=== PATIENT | female | born 1955 | race Caucasian/White ===

== ENCOUNTER 2023-03-08 18:07 | Emergency (ER) | payer MEDICARE ==
[~2023-03-08] VITALS: Ht 157.5 cm; Wt 97.5 kg
[2023-03-08] MEDS ORDERED: LEXAPRO10 MG PO (18:41)
[2023-03-08] MEDS ORDERED: ATIVAN0.5 MG PO (18:42)
[2023-03-08 18:50] LABS: BASOPHILS 0.8 % (0-2); EOSINOPHILS 2.4 % (0-6); HEMATOCRIT 44.5 % (35.0-50.0); HEMOGLOBIN 15.1 g/dL (12.0-18.0); LYMPHOCYTES 25.5 % (24-44); MCH 30.8 (27-36); MCHC 33.9 g/dl (30-36); MONOCYTES 5.8 % (0-12); NEUTROPHILS 65.5 % (39-80); PLATELET COUNT 262 K/uL (140-440); RBC 4.89 M/ul (4.3-5.7); RDW 14.2 (10.5-15.0)
[2023-03-08 19:08] LABS: ALBUMIN 4.2 g/dL (3.4-5.0); ALBUMIN/GLOBULIN RATIO 1.27 (1.1-2.4); ANION GAP 15.7 (7-21); BILIRUBIN, TOTAL 0.4 ng/dL (0.2-1.0); BUN/CREATININE RATIO 13.26 (6.0-28.6); CALCIUM 9.1 mg/dL (8.5-10.1); CREATININE, SERUM 0.98 mg/dL (0.55-1.02); MAGNESIUM 2.1 mg/dL (1.8-2.4); POTASSIUM 3.7 mmol/L (3.5-5.1); PROTEIN, TOTAL 7.5 g/dL (6.4-8.2)
[2023-03-08 19:53] LABS: AMYLASE 150 U/L (25-115)
--- OUTSIDE RECORDS SUMMARY | 2023-03-08 20:01 | XMS ---
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 Manuelito VISIT COUNT (12 MO.) 1 HARLEY [place] TOTAL 1 NOTE: Visits indicate total known visits. ED/UCC VISIT TRACKING (12 MO.) 03/08/2023 18:07 [facility] [place] TYPE: Emergency COMPLAINT: - HIGH BLOOD PRESSURE INPATIENT VISIT TRACKING (12 MO.) No inpatient visits to display in this time frame [id number]
[2023-03-08] MEDS ORDERED: LISINOPRIL-HCT1 EACH PO (20:06)
[2023-03-08 20:17] VITALS: BP 138/78
--- NOTE | 2023-03-09 06:55 | EKG ---
[facility] [address] [place], [place] [address] Signed Normal sinus rhythm Low voltage QRS Incomplete right bundle branch block T wave abnormality, consider anterior ischemia Abnormal ECG No previous ECGs available Confirmed by TAMMY BOYD MD ([id number]) on 03/09/2023 6:55:25 AM Electronically Signed By: TAMMY BOYD 03/09/23 0655 PATIENT NAME: ASHLEY MCGARRY Electrocardiogram DATE OF : 53 PHYSICIAN: TAMMY BOYD REPORT #: [id number] REPORT IS CONFIDENTIAL AND NOT TO BE RELEASED WITHOUT AUTHORIZATION
== END 2023-03-08 20:18 | disposition home or self-care (01) ==
LOC: ED 18:07
PROVIDERS: Emergency Medicine; Family Medicine
DX: I10 Essential (primary) hypertension (principal); Z79.899 Other long term (current) drug therapy; Z91.041 Radiographic dye allergy status
CPT/HCPCS: 36415; 70450; 71045; 80053; 82150; 83690; 83735; 84484; 85025; A9270

== ENCOUNTER 2025-01-19 05:58 | Day surgery (SDC) | payer MEDICARE ==
[~2025-01-19] VITALS: Ht 162.6 cm; Wt 95.0 kg
[~2025-01-19 05:58] MED LIST: ATIVAN0.5 MG PO; L-THEANINE100 MG PO; LACTATED RINGER'S 1,000 ML IV SCH; LEXAPRO10 MG PO; LISINOPRIL-HCT1 EACH PO; MAGNESIUM400 MG PO; NP THYROID30 MG PO
[2025-01-19 06:13] VITALS: BP 167/91
[2025-01-19] MEDS ORDERED: LIDOCAINE HCL 1% 5 ML SDV INJ ONE (07:00)
[2025-01-19] MEDS ORDERED: IBLOOD GLUCOSE TEST STRIP 1 EA TEST VI PRN ×2 (07:00→10:30)
[2025-01-19] MEDS ORDERED: CEFAZOLIN SODIUM 2 GM in SODIUM CHLORIDE 0.9% 100 ML IV SCH (07:00)
--- NOTE | 2025-01-19 07:04 | NUR ---
DR Cheung IN TO TALK WITH PT. INSIDE WIREMAN IN TO SEE PT. DB.
--- NOTE | 2025-01-19 07:04 | NUR ---
G DAUGHTER KARLEY WILL BE BACK.
[2025-01-19] MEDS ORDERED: DEXAMETHASONE SOD PHOS 4 MG/ML VIAL ONE ×2 (07:19→10:29)
[2025-01-19] MEDS ORDERED: KETAMINE in NS 50 MG/5 ML SYR ONE (07:19)
[2025-01-19] MEDS ORDERED: fentaNYL citrate 100 MCG/2 ML VIAL ONE ×2 (07:19→11:19)
[2025-01-19] MEDS ORDERED: MIDAZOLAM HCL 2 MG/2 ML VIAL ONE (07:19)
[2025-01-19] MEDS ORDERED: MAGNESIUM SULFATE 1 GM/2 ML VIAL ONE ×2 (07:20→08:50)
[2025-01-19] MEDS ORDERED: SODIUM CHLORIDE 0.9% 40 ML IV ONE ×3 (07:20→10:29)
[2025-01-19] MEDS ORDERED: LIDOCAINE HCL 2% 5 ML SDV ONE ×2 (07:20→08:49)
[2025-01-19] MEDS ORDERED: ROCURONIUM BROMIDE 50 MG/5 ML SYR ONE ×2 (07:20→09:14)
[2025-01-19] MEDS ORDERED: ACETAMINOPHEN 1,000 MG/100 ML VIAL ONE (07:20)
[2025-01-19] MEDS ORDERED: Ropivacaine HCl 0.5% 30 ML VIAL ONE (10:29)
[2025-01-19] MEDS ORDERED: fentaNYL citrate 50 MCG/ML SDV IV PRN (10:30)
[2025-01-19] MEDS ORDERED: KETOROLAC TROMETHAMINE 30 MG/ML VIAL IV PRN (10:30)
[2025-01-19] MEDS ORDERED: NALOXONE HCL 0.4 MG SYR IV PRN (10:30)
[2025-01-19] MEDS ORDERED: HYDROmorphone HCL 1 MG/ML SYR IV PRN (10:30)
[2025-01-19] MEDS ORDERED: ALBUTEROL/IPRATROPIUM 3 ML NEB INH ONE (12:00)
--- NOTE | 2025-01-19 12:09 | NUR ---
01/19/25 1209 Sheets,Erinn 1122 PT ARRIVED TO PACU ON 6L VIA MASK AND O2 SAT LOW 90S. RESP EVEN AND UNLABORED. DEEP BREATHING AND COUGHING ENCOURAGED. PT REFUSED TO COUGH AND EASILY FALLS BACK TO SLEEP. HOB INCREASED. 1140 O2 REMOVED AND O2 DECREASED TO 86%, HOB INCREASED AND DEEP BREATHING ENCOURAGED. PT REPORTS PAIN IS ABD 9/10 AND REFUSED TO COUGH. 4L NC PLACED. O2 SLOWING INCREASING. 1143 PT ASLEEP AND MD AT BEDSIDE. PT WAKES EASILY AND TALKING TO PT. PT GRIMACING OFF AND ON. O2 SAT REMAIN LOW 90S. 1152 INSENTIVE SPIROMETER USED AND PT ABLE TO USE WITH EDUCATION. LOW LOBES BILAT RHONCI NOTED. 1157 NEW ORDER FROM JACQUARD TWINE POLISHER OPERATOR. BREATHING TREATMENT STARTED. O2 DECREASED TO 2L. 1206 PT SITTING IN HIGH FOLWERS AND RESTING WITH EYES CLOSED. O2 SAT 88-90%. 1209 RNA HELPS PT BRACE ABD AND PT COUGHING. PT GRIMACING AND GRABBING IN ABD. EDUCAITON GIVEN. O2 SAT INCREASED TO 93%.
[2025-01-19 12:34] VITALS: BP 109/54
--- NOTE | 2025-01-19 12:40 | NUR ---
HAS RETURNED FROM PACU CALL LIGHT GIVEN USING IS. WATER AND PRANEETH CRACKERS GIVEN. R T HERE TO EVALUATE.
[2025-01-19] MEDS ORDERED: HYDROCODONE/ACETA 5/325 TAB PO PRN (13:00)
[2025-01-19 13:22] VITALS: BP 106/63
--- NOTE | 2025-01-19 13:28 | NUR ---
HAS BEEN EATING CRACKERS. RATES PAIN 8/10 NOW PAIN MED STATING TO WORK. USING IS TO 750, GIVING ENC.
--- NOTE | 2025-01-19 14:06 | NUR ---
conts to is sat on ra 93 to 94%. drinking water declines anything else.
[2025-01-19 14:27] VITALS: BP 111/68
--- NOTE | 2025-01-19 14:31 | NUR ---
DR Cheung CALLED PT REQUEST ICE PACK TO INCISIONS AND OK AND PLACED.
--- NOTE | 2025-01-19 14:39 | NUR ---
ASSISTED UP AMB IN ROOM DID WELL. PAINFUL WITH MOVEMENT.RETURNED TO STRETCHER USING IS STILL 750. RA SAT 95%.
[2025-01-19 15:32] VITALS: BP 109/70
--- NOTE | 2025-01-19 15:56 | NUR ---
AMB TO BR VOIDS 100CC DARK AMB URINE. WANTS TO GO HOME. CONTS TO DO IS 750. ENC TO DO AT HOME. CALLED KARLEY TO COME GET HER. GETTING DRESSED. HAS HELD PILLOW OVER ABD SPLINTING WITH MOVEMENT.
== END 2025-01-19 15:50 | disposition home or self-care (01) ==
LOC: DS 05:58 → OPS 05:58 → DS 07:30 → OPS 07:30 → DS 08:15 → OPS 15:50
PROVIDERS: ATTEND Surgery
PROC: 3E0T3BZ Introduction of Anesthetic Agent into Peripheral Nerves and Plexi, Percutaneous Approach (ICD-10-PCS; 2025-01-19)
PROC: 0WUF4JZ Supplement Abdominal Wall with Synthetic Substitute, Percutaneous Endoscopic Approach (ICD-10-PCS; principal; 2025-01-19 07:30)
DX: K43.2 Incisional hernia without obstruction or gangrene (principal); K42.9 Umbilical hernia without obstruction or gangrene; I10 Essential (primary) hypertension; F33.0 Major depressive disorder, recurrent, mild; K21.9 Gastro-esophageal reflux disease without esophagitis; Z79.899 Other long term (current) drug therapy; Z88.8 Allergy status to other drugs, medicaments and biological substances; Z90.49 Acquired absence of other specified parts of digestive tract
CPT/HCPCS: 76942; C1781; J0131; J0688; J1100; J1790; J1885; J2003; J2250; J2405; J2704; J2795; J3010; J3475; J3490; J7121

== ENCOUNTER 2025-02-05 16:32 | Inpatient (IN) | payer MEDICARE ==
[~2025-02-05] VITALS: Ht 162.6 cm; Wt 95.0 kg
--- OUTSIDE RECORDS SUMMARY | ~2025-02-05 | XMS | Continuity of Care Document ---
Demographics + + + | Address | [address] | | | [place] [address] | + + + | Preferred Language | Unknown | + + + | Marital Status | | + + + | Oriental Orthodox Affiliation | Unknown | + + + | Race | White | + + + | Ethnic Group | Not or | + + + Author + + + | Author | [facility] | + + + | Organization | [facility] | + + + | Address | [address] | | | [place] [address] | + + + | Phone | | + + + Care Team Providers + + + + | Care Pharmacy Stock Clerk Name | Role | Phone | + + + + Unavailable | Unavailable | + + + + Unavailable | Unavailable | + + + + Allergies No information. Encounters No information. Functional Status No information. Immunizations No information. Medications + + + + | date | description | facility | + + + + | (no date) | Theanine | [facility] | | | | [facility] | + + + + | (no date) | THYROID,PORK | [facility] | | | | [facility] | + + + + | (no date) | LORAZEPAM | [facility] | | | | [facility] | + + + + | (no date) | MAGNESIUM OXIDE | [facility] | | | | [facility] | + + + + | (no date) | ESCITALOPRAM OXALATE | [facility] | | | | [facility] | + + + + Problems No information. Procedures No information. Results/Labs +--------+--------+ +---------+--------+---------+ | test | date | facility | value | unit | notes | +--------+--------+ +---------+--------+---------+ + + | Result panel 1 | + + + + + +--------+ + + | WBC # Bld | 2025-01-16 | | 6.52 | (missing) | (missing) | | Auto | 15:47:07 | [facility] | | | | + + + +--------+ + + + + | Result panel 2 | + + + + + +--------+ + + | Lymphocytes | 2025-01-16 | | 31.7 | (missing) | (missing) | | NFr Bld | 15:47:07 | [facility] | | | | Auto [facility] | | | | + + + +--------+ + + + + | Result panel 3 | + + + + + +-------+ + + | Monocytes | 2025-01-16 | | 7.1 | (missing) | (missing) | | NFr Bld Auto | 15:47:07 | [facility] | | | | + + + +-------+ + + + + | Result panel 4 | + + + + + +-------+ + + | Eosinophil | 2025-01-16 | | 3.1 | (missing) | (missing) | | NFr Bld Auto | 15:47:07 | [facility] | | | | + + + +-------+ + + + + | Result panel 5 | + + + + + +-------+ + + | Basophils | 2025-01-16 | | 0.8 | (missing) | (missing) | | NFr Bld Auto | 15:47:07 | [facility] | | | | + + + +-------+ + + + + | Result panel 6 | + + + + + +-------+---------+ + | Glucose | 2025-01-16 | | 152 | mg/dL | (missing) | | [facility] | 15:47:07 | [facility] | [facility] | | | | + + + +-------+---------+ + + + | Result panel 7 | + + + + + +------+---------+ + | BUN | 2025-01-16 | | 17 | mg/dL | (missing) | | [facility] | 15:47:07 | [facility] | | | | + + + +------+---------+ + + + | Result panel 8 | + + + + + +--------+---------+ + | Creat | 2025-01-16 | | 0.94 | mg/dL | (missing) | | [facility] | 15:47:07 | [facility] | | | | + + + +--------+---------+ + + + | Result panel 9 | + + + + + +------+ + + | eGFRcr | 2025-01-16 | | 65 | (missing) | (missing) | | SerPlBld | 15:47:07 | [facility] | | | | | CKD-EPI 2020 | [facility] | | | | + + + +------+ + + + + | Result panel 10 | + + + + + +---------+ + + | BUN/Creat | 2025-01-16 | | 18.08 | (missing) | (missing) | | SerPl | 15:47:07 | [facility] | | | | + + + +---------+ + + + + | Result panel 11 | + + + + + +-------+ + + | Sodium | 2025-01-16 | | 137 | (missing) | (missing) | | SerPl-sCnc | 15:47:07 | [facility] | | | | + + + +-------+ + + + + | Result panel 12 | + + + + + +--------+ + + | RBC # Bld | 2025-01-16 | | 4.78 | (missing) | (missing) | | Auto | 15:47:07 | [facility] | | | | + + + +--------+ + + + + | Result panel 13 | + + + + + +-------+ + + | Potassium | 2025-01-16 | | 3.9 | (missing) | (missing) | | Ser[facility]-s[facility]nc | 15:47:07 | [facility] | | | | + + + +-------+ + + + + | Result panel 14 | + + + + + +-------+ + + | Chloride | 2025-01-16 | | 100 | (missing) | (missing) | | SerPl-sCnc | 15:47:07 | [facility] | | | | + + + +-------+ + + + + | Result panel 15 | + + + + + +------+ + + | CO2 | 2025-01-16 | | 28 | (missing) | (missing) | | [facility] | 15:47:07 | [facility] | [facility] | | | | + + + +------+ + + + + | Result panel 16 | + + + + + +--------+ + + | Anion Gap | 2025-01-16 | | 12.9 | (missing) | (missing) | | SerPl | 15:47:07 | [facility] | | | | | Calculated.4 | [facility] | | [facility] | | | | + + + +--------+ + + + + | Result panel 17 | + + + + + +-------+---------+ + | Calcium | 2025-01-16 | | 9.1 | mg/dL | (missing) | | SerPl-mCnc | 15:47:07 | [facility] | | | | + + + +-------+---------+ + + + | Result panel 18 | + + + + + +--------+ + + | Hgb | 2025-01-16 | | 14.6 | (missing) | (missing) | | Bld-mCnc | 15:47:07 | [facility] | | | | + + + +--------+ + + + + | Result panel 19 | + + + + + +--------+ + + | Hct VFr.DF | 2025-01-16 | | 43.2 | (missing) | (missing) | | Bld Auto | 15:47:07 | [facility] | | | | + + + +--------+ + + + + | Result panel 20 | + + + + + +--------+ + + | RBC Auto | 2025-01-16 | | 90.4 | (missing) | (missing) | | | 15:47:07 | [facility] | | | | | | | - | | | | | | | [facility] | | | | + + + +--------+ + + + + | Result panel 21 | + + + + + +--------+ + + | MCH RBC Qn | 2025-01-16 | | 30.5 | (missing) | (missing) | | Auto | 15:47:07 | [facility] | | | | + + + +--------+ + + + + | Result panel 22 | + + + + + +--------+ + + | MCHC RBC | 2025-01-16 | | 33.8 | (missing) | (missing) | | Auto-EntMCnc | 15:47:07 | [facility] | | | | + + + +--------+ + + + + | Result panel 23 | + + + + + +-------+ + + | Platelet # | 2025-01-16 | | 239 | (missing) | (missing) | | Bld Auto | 15:47:07 | [facility] | | | | + + + +-------+ + + + + | Result panel 24 | + + + + + +--------+ + + | Neutrophils | 2025-01-16 | | 57.1 | (missing) | (missing) | | NFr Bld | 15:47:07 | [facility] | | | | | Auto | [facility] | | | | + + + +--------+ + + Social History + + + + | date | description | facility | + + + + | (no date) | Unknown if ever smoked | [facility] | | | | [facility] | + + + + Vital Signs + + + +---------+ | date | measurement | value | units | + + + +---------+ | 2025-01-16 00:00 | BMI | 35.9 | kg/m2 | + + + +---------+ | 2025-01-16 00:00 | height_metric | 162.56 | cm | + + + +---------+ | 2025-01-16 00:00 | height_standard | 64 | in | + + + +---------+ | 2025-01-16 00:00 | weight_metric | 94.999 | kg | + + + +---------+ | 2025-01-16 00:00 | weight_standard | 209.437 | lb | + + + +---------+ | 2025-01-19 00:00 | BP_diastolic | 70 | mmHg | + + + +---------+ | 2025-01-19 00:00 | BP_systolic | 109 | mmHg | + + + +---------+ | 2025-01-19 00:00 | heart_rate | 72 | /min | + + + +---------+ | 2025-01-19 00:00 | o2_saturation | 92 | % | + + + +---------+ | 2025-01-19 00:00 | respiration_rate | 16 | /min | + + + +---------+ | 2025-01-19 00:00 | | 97.9 | F | | | temperature_standar | | | | | d | | | + + + +---------+"
[~2025-02-05 16:32] MED LIST changes: -LACTATED RINGER'S 1,000 ML IV SCH; +SEVOFLURANE 250 ML BTL INH ONE
[2025-02-05 17:12] VITALS: BP 146/83
[2025-02-05 17:12] LABS: BASOPHILS 0.8 % (0.1-1.2); EOSINOPHILS 2.7 % (0.7-5.8); LYMPHOCYTES 22.6 % (19.3-51.7); MCH 30.4 PG (25.6-32.2); MCHC 33.9 g/dL (32.2-35.5); MCV 89.8 fL (79.4-94.8); MONOCYTES 8.9 % (4.7-12.5); NEUTROPHILS 64.5 % (34.0-71.1); RBC 4.70 M/uL (3.93-5.22)
[2025-02-05] MEDS ORDERED: LACTATED RINGER'S 1,000 ML IV ONE (17:15)
[2025-02-05] MEDS ORDERED: MORPHINE SULFATE 4 MG/ML VIAL IV PRN (17:15)
[2025-02-05] MEDS ORDERED: SODIUM CHLORIDE 0.9% 1,000 ML IV SCH (17:15)
[2025-02-05 17:28] LABS: ALT (SGPT) 25.0 U/L (14-59); AST (SGOT) 19.0 U/L (15-37); GLOMERULAR FILTRATION RATE,EST 65.0 mL/min (>60); PROTEIN, TOTAL 8.1 g/dL (6.4-8.2); UREA NITROGEN 14.0 mg/dL (7-18)
[2025-02-05] MEDS ORDERED: HYDROmorphone HCL 1 MG/ML SYR IV PRN (17:45)
[2025-02-05] MEDS ORDERED: IBLOOD GLUCOSE TEST STRIP 1 EA TEST VI PRN (17:45)
[2025-02-05] MEDS ORDERED: fentaNYL citrate 50 MCG/ML SDV IV PRN (17:45)
[2025-02-05] MEDS ORDERED: NALOXONE HCL 0.4 MG SYR IV PRN (17:45)
[2025-02-05] MEDS ORDERED: ROCURONIUM BROMIDE 50 MG/5 ML SYR ONE ×2 (17:48→20:13)
[2025-02-05] MEDS ORDERED: LIDOCAINE HCL 2% 5 ML SDV ONE (17:48)
[2025-02-05] MEDS ORDERED: fentaNYL citrate 100 MCG/2 ML VIAL ONE ×2 (17:48→20:02)
[2025-02-05] MEDS ORDERED: MIDAZOLAM HCL 2 MG/2 ML VIAL ONE (17:49)
[2025-02-05] MEDS ORDERED: MAGNESIUM SULFATE 1 GM/2 ML VIAL ONE (17:54)
[2025-02-05] MEDS ORDERED: KETAMINE in NS 50 MG/5 ML SYR ONE (17:55)
[2025-02-05] MEDS ORDERED: AMP/SULBACTAM SOD 3 GM in SODIUM CHLORIDE 0.9% 100 ML IV SCH (18:00)
--- NOTE | 2025-02-05 18:04 | NUR ---
PT TO FLOOR VIA WHEELCHAIR WITH FAMILY. IV STARTED WO DIFFICULTY, BLOOD SENT TO LAB. BOLUS STARTED. IV AB STARTED. WIPEDOWN DONE. GOWN CHANGED.
--- NOTE | 2025-02-05 18:25 | NUR ---
PATIENT TO SURGERY VIA BED.
[2025-02-05] MEDS ORDERED: GLYCOPYRROLATE 1 MG/5 ML MDV ONE (19:28)
[2025-02-05] MEDS ORDERED: HEParin SOD (PORCINE) 5,000 UNIT/ML SDV ONE (19:29)
--- NOTE | 2025-02-05 19:30 | NUR ---
PT IN SURGERY
[2025-02-05] MEDS ORDERED: DEXAMETHASONE SOD PHOS 4 MG/ML VIAL ONE (19:44)
[2025-02-05] MEDS ORDERED: KETOROLAC TROMETHAMINE 30 MG/ML VIAL ONE (19:44)
[2025-02-05] MEDS ORDERED: Ropivacaine HCl 0.5% 30 ML VIAL ONE (19:44)
[2025-02-05] MEDS ORDERED: METOPROLOL TARTRATE 5 MG/5 ML VIAL ONE (19:46)
[2025-02-05] MEDS ORDERED: SUGAMMADEX SODIUM 200 MG/2 ML ML ONE (20:51)
[2025-02-05] MEDS ORDERED: HEParin SOD (PORCINE) 5,000 UNIT/ML SDV SUB-Q SCH (21:00)
[2025-02-05] MEDS ORDERED: ACETAMINOPHEN 1,000 MG/100 ML VIAL ONE (21:37)
--- NOTE | 2025-02-05 22:02 | NUR ---
PT STILL IN SURGERY
[2025-02-05] MEDS ORDERED: ACETAMINOPHEN 1,000 MG/100 ML VIAL IV PRN (22:15)
[2025-02-05] MEDS ORDERED: LIDOCAINE 2% VISCOUS 6 ML SYR TOP ONE (22:30)
--- NOTE | 2025-02-05 22:57 | NUR ---
02/05/25 225 Diane Minor 2208- PT ARRIVES TO PACU WITH AN ORAL AIRWAY IN PLACE. PT IS NONREACTIVE TO VERBAL AND TACTILE STIMULI. SRUGICAL SITE IS CDI. PT IS RESTING WITH GRUNTING NOTED ON EXHALATION. VITAL SIGNS OBTAINED. LR INFUSING. MORA CATHETER IS DRAINING CLEAR YELLOW URINE. HOB INCREASED. BREATHING IS EVEN. 2219- SOME FACIAL GRIMACING NOTED. PT IS ABLE TO OPEN EYES TO VERBAL AND TACTILE STIMULI. PT IS ABLE TO FOLLOW DIRECTIONS TO OPEN HER MOUTH. ORAL AIRWAY REMOVED AT THIS TIME. PT EASILY FALLS BACK TO SLEEP. NO APPARENT SIGNS OF DISTRESS. 2232- PT IS ORIENTED TO PACU BY RN AND ASKING HOW SURGERY WENT. PT IS WAVING AND RN AND GIVING THUMBS UP. PT EASILY FALLS BACK TO SLEEP. 2237- O2 TURNED OFF AND REMOVED AT THIS TIME. PT REPORTS PAIN IS A 6/10 BUT DENIES ANY NAUSEA. 2240- PT IS PLACED ON 2L VIA NC AT THIS TIME FOR O2 SATS THAT DECREASED TO 88%. PT WAS ABLE TO FOLLOW DIRECTIONS TO BREATHE DEEPLY BUT EASILY FALLS BACK TO SLEEP. 2247- FENTANYL GIVEN, SEE EMAR.
[2025-02-05 23:24] VITALS: BP 152/87
--- NOTE | 2025-02-05 23:49 | NUR ---
RETURNING FROM PACU AT 2321, AWAKE, GOES BACK TO SLEEP RIGHT AWAY, DENIES C/O PAIN. ON 2L O2 NC, NOT CHRONIC, POST OP CPOX ON AT BEDSIDE. LUNGS CLEAR DIM AT BAES, ABD BINDER IN PLACE, NOT ASSESSED AT THIS TIME. DUE TO PTS REQUESTS. WILL DO WHEN MORE AWAKE. 2 AVIS W SANGUINEOUS DRAINAGE. F/C PATENT DRAINING SMALL AMOUNT OF CLEAR YELLOW URINE AT THIS TIME. SCDS IN PLACE. IVF INFUSING LFA. ALERT AND ORINETED, PLEASANT.
[2025-02-06] VITALS (13 sets, daily range): BP systolic 138–177; BP diastolic 74–96
--- NOTE | 2025-02-06 00:30 | NUR ---
HOB ELEVATED TO 30o, RESTING, AWAKENS EASILY, ON 2LNC, NO C/O PAIN. IVF INFUSING W/O PROBLEMS. ABD BINDER IN PLACE
--- NOTE | 2025-02-06 01:30 | NUR ---
RESTING, NO S/SX DITRESS, O2 2LNC IN PLACE, IVF INFUSING CPOX AT BEDSIDE, SCDS IN PLACE, F/C PATENT. NO S/SX DISTRESS,
--- NOTE | 2025-02-06 02:34 | NUR ---
Pt awakens easily, on 2LNC cpox at bedside, O2 not chronic. sts WNL, denies c/o sob. lungs auscultated through abd binder. clear but dim t/o. abd binder in place. towels unerneat, not removed. low abd soft, tender. patrice. LBM 02/05. 2 AVIS patent draining small amounts of sanguineous drainage. f/c patent. draining small amounts QS yellow urine. scds in place. C/o abd pain, when repositioned. Medicated with Morphine 4mg IV. Alert and oriented, Pleasant and cooperative.
--- NOTE | 2025-02-06 05:13 | NUR ---
AWAKE, ASKING FOR PAIN MEDS, ABD BINDER IN PLACE, NOT PASSING GAS, AVIS X2 WITH SANGUINEOUS DRAINAGE. WAS MEDICATED WITH MORPHINE 4MG IV. REPOSITIONED, TURNED VERY COOPERATIVE, TOLERATED WELL. IVF INFUSING W/O PROBLEMS. SCDS IN PLACE, F/C PATENT.
[2025-02-06 05:32] LABS: BASOPHILS 0.2 % (0.1-1.2); EOSINOPHILS 0 % (0.7-5.8); LYMPHOCYTES 6.0 % (19.3-51.7); MCH 30.9 PG (25.6-32.2); MCHC 33.5 g/dL (32.2-35.5); MCV 92.3 fL (79.4-94.8); MONOCYTES 5.0 % (4.7-12.5); NEUTROPHILS 88.5 % (34.0-71.1); RBC 3.88 M/uL (3.93-5.22)
[2025-02-06 05:42] LABS: GLOMERULAR FILTRATION RATE,EST 79.0 mL/min (>60); UREA NITROGEN 14.0 mg/dL (7-18)
--- NOTE | 2025-02-06 07:43 | NUR ---
REPORT RECEIVED FROM ELLIOT JONES. PATIENT IN BED, DENIES CONCERNS. CALL LIGHT AND PERSONAL BELONGINGS IN REACH OF PATIENT.
--- NOTE | 2025-02-06 09:02 | NUR ---
PATIENTIN BED. PATIENT REPORTS 9/10 PAIN. PRN PAIN MEDICATION ADMINISTERED PER PATIENT REQUEST. SCHEUDLED MEDICATIONS ADMINISTERED. ASSESMENT COMPLETED. PATIENT DENIES CONCERNS. CALL LIGHT AND PERSONAL BELONGINGS IN REACH OF PATIENT.
[2025-02-06] MEDS ORDERED: SODIUM CHLORIDE 0.9% 1,000 ML IV SCH ×2 (09:57→11:00)
--- NOTE | 2025-02-06 10:06 | NUR ---
PATIENT IN BED, EYES CLOSED, CHEST RISE EVEN AND UNLABORED. CALL LIGHT AND PERSONAL BELONGINGS IN REACH OF PATIENT.
--- NOTE | 2025-02-06 10:38 | NUR ---
PATIENT IN BED AT THIS TIME. VITALS AND I&O'S DONE AND CHARTED. CALL LIGHT IN REACH. NO FURTHER NEEDS AT THIS TIME.
--- NOTE | 2025-02-06 10:45 | NUR ---
Spoke with Lacho. She states she lives in a 1 story home that is handicap accessable. Bathroom has grab bars and seat in the shower. Her granddaughter lives with her. They share house hold chores. She denies any financial issues or safety concerns. Pt does not use any DME. We discussed when she begins to get out of bed we can determine what her needs from DME will be. Pt. plans on dc to home on discharge.
--- NOTE | 2025-02-06 11:45 | NUR ---
PATIENT IN BED, REPORTS 8/10 PAIN. PRN PAIN MEDICAITON ADMINISTERED PER PATIENT REQUEST. PATIENT DENEIS CONCERNS AT THIS TIME. CALL LIGHT AND PERSONAL BELONGINGS IN REACH OF PATIENT.
--- NOTE | 2025-02-06 12:26 | NUR ---
PATIENT IN BED, IV INFUSION COMPLETED. PATIENT REPORTS PAIN DECREASED TO 6/10. CALL LIGHT AND PERSONAL BELONGINGS IN REACH OF PATIENT. PATIENT DENIES CONCERNS AT THIS TIME.
--- NOTE | 2025-02-06 14:09 | NUR ---
UR CLINICAL REVIEW: 2 MN FOR VERSALUS-PER ALUMINUM SHINGLE ROOFER MEETS INPT FOR HERNIA REPAIR WITH NEED FOR MONITORING AND PAIN CONTROL MEDICARE INPT 02/05/25 @ 2909 ORDER MATCHES REG NO AUTH REQUIRED PER MEDICARE GUIDELINES DISHCARGE TO HOME WHEN STABLE
--- NOTE | 2025-02-06 14:41 | NUR ---
PATIENT IN BED RESTING, VISITOR IN ROOM. VITALS AND I&O'S DONE AND CHARTED. FRESH WATER GIVEN. VISITOR WOULD LIKE AND UPDATE FROM NURSE, RN NOTIFIED. CALL LIGHT IN REACH. NO FURTHER NEEDS AT THIS TIME.
--- NOTE | 2025-02-06 15:04 | NUR ---
PATIENT IN BED, GRAND DAUGHTER AT BEDSIDE. ANSWERED PATIENT AND GRANDDAUGHTER QUESTIONS REGARDING PATIENT CONDITION. PATIENT REPORTS 8/10 PAIN, PRN PAIN MEDICATION ADMINISTERED PER PATIENT REQUEST. PATIENT DENIES FURTHER CONCERNS. CALL LIGHT AND PERSONAL BELONGIGNS IN REACH OF PATEINT.
--- NOTE | 2025-02-06 16:44 | NUR ---
CALLED MD. REVIEWED 3 ML DRAINAGE IN LEFT AVIS DRAIN AND 0 ML DRAINAGE IN RIGHT AVIS. MD VERBALIZED UNDERSTANDING. REVIEWED PT IS TOLERATING CLEAR LIQUID DIET, INQUIRED IF OK TO ADVANCE DEIT. PER MD, OK TO ADVANCE DIET TOLERATED. NO FURTHER NEW ORDERS AT THIS TIME.
--- NOTE | 2025-02-06 17:10 | NUR ---
DR GARCIA IN ROOM. AUTHORIZED TO GIVE NORCO EARLY. PT RATES PAIN 9\10.
[2025-02-06] MEDS ORDERED: HYDROCODONE/ACETA 5/325 TAB PO PRN (18:00)
--- NOTE | 2025-02-06 18:24 | NUR ---
PATIENT IN BED RESTING AT THIS TIME. VITALS AND I&O'S DONE AND CHARTED. PATIENT FEELING A LITTLE NAUSEA, RN NOTIFIED. CALL LIGHT IN REACH. NO FURTHER NEEDS AT THIS TIME.
--- NOTE | 2025-02-06 18:34 | NUR ---
ZOFRAN RECEIVED FOR NAUSEA.
--- NOTE | 2025-02-06 19:30 | NUR ---
REPORT RECEIVED FROM DAY SHIFT RN. PATIENT RESTING IN BED WITH EYES CLOSED. RESPIRATIONS EVEN AND UNLABORED. CALL LIGHT IN REACH.
--- NOTE | 2025-02-06 20:20 | NUR ---
PATIENT RESTING IN BED. REPORTS 10/10 PAIN. PRN PAIN MEDICATION ADMINISTERED. SCHEDULED MEDICATION ADMINISTERED. PATIENT REPOSITIONED IN BED. ABD INCISION C/D/I. ABD BINDER IN PLACE. PATIENT DENIES FURTHER NEEDS AT THIS TIME AND STATES THAT SHE FEELS BETTER. CALL LIGHT IN REACH.
--- NOTE | 2025-02-06 21:41 | EKG ---
[facility] [address] [place], [place] [address] Signed Normal sinus rhythm Incomplete right bundle branch block Borderline ECG When compared with ECG of 16-JAN-2025 14:40, Questionable change in QRS axis Inverted T waves have replaced nonspecific T wave abnormality in Anterior leads Confirmed by Agnieszka Lozano MD () on 02/06/2025 9:41:35 PM Electronically Signed By: AGNIESZKA LOZANO MD [id number]/06/[id number] PATIENT NAME: ASHLEY MCGARRY Electrocardiogram DATE OF : 53 PHYSICIAN: AGNIESZKA LOZANO MD REPORT #: [id number] REPORT IS CONFIDENTIAL AND NOT TO BE RELEASED WITHOUT AUTHORIZATION
--- NOTE | 2025-02-06 21:48 | NUR ---
PRN PAIN MEDICATION ADMINISTERED FOR 7/10 ABD PAIN. PRN PAIN MEDICATION ADMINISTERED. NO FURTHER NEEDS. CALL LIGHT IN REACH.
--- NOTE | 2025-02-06 22:10 | NUR ---
SIDE BED RAIL FAN PROVIDED.
[2025-02-07] VITALS (10 sets, daily range): BP systolic 133–143; BP diastolic 70–83
--- NOTE | 2025-02-07 00:52 | NUR ---
ROUNDING ON PATIENT. PATIENT AWAKE. PATIENT REPORTS 9/10 ABD PAIN. PRN PAIN MEDICATION ADMINISTERED. SCDs IN PLACE. PATIENT DENIES FURTHER NEEDS. CALL LIGHT IN REACH.
--- NOTE | 2025-02-07 02:36 | NUR ---
PATIENT RESTING IN BED. SCHEDULED IV ABX INFUSING PER ORDER. PATIENT REPSITIONED IN BED. PATIENT DENIES FURTHER NEEDS AT THIS TIME. CALL LIGHT IN REACH.
--- NOTE | 2025-02-07 03:39 | NUR ---
PT REPORTS ABD PAIN 11/09. PRN FOR PAIN ADMIN PER EMAR. NO FURTHER NEEDS. PRIMARY RN UPDATED.
--- NOTE | 2025-02-07 05:34 | NUR ---
PATIENT RESTING IN BED ON BACK WITH EYES CLOSED. RESPIRATIONS EVEN AND UNLABORED. CALL LIGHT IN REACH.
--- NOTE | 2025-02-07 06:35 | NUR ---
PATIENT RESTING IN BED. VS AND I&Os OBTAINED AND RECORDED. PATIENT REPORTS 7/10 ABD PAIN. PRN PAIN MEDICATION ADMINISTERED. PATIENT DENIES FURTHER NEEDS AT THIS TIME. CALL LIGHT IN REACH.
--- NOTE | 2025-02-07 07:27 | NUR ---
REPORT RECEIVED FROM YANELY JONES. PATIENT IN BED, EYES CLOSED, CHEST RISE EVEN AND UNLABORED. CALL LIGHT AND PERSONAL BELONGINGS IN REACH OF PATIENT.
--- NOTE | 2025-02-07 08:12 | NUR ---
REFERRED BY NURSING STAFF WHO INDICATED PT HAD INTEREST IN INFORMATION REGARDING PRAYER SHAWLS. PTINDICATED GRANDDAUGHTER CROCHETED AND WOULD BE DELIGHTED TO HAVE A CAUSE TO SUPPORT. PT IN OVERALL GOOD SPIRITS, TALKED OF FAMILY SOURCE OF STRENGTH; NO IMMEDIATE NEEDS. TELECOMMUNICATIONS REPAIRER PROVIDED SUPPORTIVE PRESENCE, HOSPITALITY, PRAYER, PROVIDED REQUESTED INFORMATION, FACILITATED INTERACTION WITH THERAPY ANIMAL. PT EXPRESSED GRATITUDE, HOPE.
--- NOTE | 2025-02-07 08:38 | NUR ---
PATIENT IN BED. SCHEDULED MEDICATIONS ADMINISTERED. ASSESMENT COMPLETED. PATIENT REPOSITIONED IN BED. PATIENT REPORTS NAUSEA, PRN MEDICATION ADMINISTERED PER PATIENT. REQUEST. PATIENT DENIES CONCERNS. CALL LIGHT AND PERSONAL BELONGINGS IN REACH OF PATIENT. IV FLUID INFUSING WITHOUT DIFFICULTY.
--- NOTE | 2025-02-07 08:52 | NUR ---
PT RESTING IN BED, HEAD UP, REPORTS PAIN. GAVE PT WARM WASH CLOTH TO WASH FACE AND HANDS.
--- NOTE | 2025-02-07 09:33 | NUR ---
PATIENT REPORTS 9/10 PAIN. IV LEAKING, DC'D WNL WITH TIP INTACT. NEW 22G IV PLACED IN RIGHT WRIST, PATIENT TOLERATED WELL. PRN PAIN MEDICATION ADMINISTERED PER PATIENT REQUEST. IV FLUIDS INFUSING WITHOUT DIFFICULTY. CALL LIGHT AND PERSONAL BELONGINGS IN REACH. PATIENT DENIES CONCERNS.
--- NOTE | 2025-02-07 09:50 | NUR ---
Spoke with Lacho. She denies needs. States concern she is discharging today and does not feel safe to do so. We discussed this and I let her know if this happens, she will be getting an IM letter. This letter tells her to how to complete a Medicare appeal. I don't believe she is discharging today as she has not been out of bed yet. This seemed to help pt.
--- NOTE | 2025-02-07 10:04 | NUR ---
THIS RN, JANNETH Pablo RN, AND AD BERKOWITZ INTO PATIENT ROOM. ADMINISTERED ORAL SCHEDULED MEDICATION AFTER PATIENT EDUCATION ON MEDICATION. PATIENT REFUSES ALL OTHER MEDICATIONS INCLUDING IV INFUSION, IV PUSH MEDICATIONS, LOVENOX, AND NICOTINE PATCH. PATIENT WITH LOUD RAISED VOICE STATING MANY OBSENITIES TO CARE TEAM. PATIENT STATES, "FUCK YOU, DON'T TOUCH ME, I AM NOT LISTENING TO NO ONE, GET OUT OF MY ROOM AND LET ME REST.". PATIENT EDUCATION PROVIDED ON MEDICATION, CARE PLAN, AND USE OF NURSING CARES AND ASSESMENTS. PATIENT ADVISED THAT HER MEDICATION WOULD BE AVAILABLE IF SHE CHANGES HER MIND. PATIENT REPORTS, "FUCK YOU, STUPID BITCH, YOU ARE BEING AN ASSHOLE, GET OUT!". CALL LIGHT IN REACH, WOUND VAC TO SUCTION 125, DO IN BED LAYING AT PATIENT'S LEGS. BED LOCKED. PATIENT IN BED, EYES OPEN, CHEST RISE EVEN AND UNLABORED.
--- NOTE | 2025-02-07 11:53 | NUR ---
PATIENT IN BED, IV FLUID INFUSING WITHOUT DIFFICULTY. PATIENT PROVIDED WITH SODA AT HER REQUEST. LUNCH AT BED SIDE. CALL LIGHT AND PERSONAL BELONGINGS IN REACH OF PATIENT. PATIENT DENIES CONCERNS.
--- NOTE | 2025-02-07 13:14 | NUR ---
PATIENT IN BED. SCHEDULED MEDICATIONS ADMINISTERED. PATIENT REPORTS 7/10 PAIN, PRN PAIN MEDICATION ADMINISTERED PER PATIENT REQUEST. PATIENT DENEIS FURTHER CONCERNS. CALL LIGHT AND PERSONAL BELONGINGS IN REACH OF PATIENT.
--- NOTE | 2025-02-07 13:40 | NUR ---
pt resting in bed, asleep, head up. call light next to pt, and i got pt fresh ice water, within reach.
--- NOTE | 2025-02-07 13:41 | NUR ---
GOT PT FRESH ICE PACKS (2) FOR HER INCISION SITE. GOT PT FRESH ICE WATER. PT SLEEPING - ON AND OFF. CALL LIGHT WITHIN REACH AND THE PT REPORTS NEEDING NOTHING MORE AT THIS TIME.
--- NOTE | 2025-02-07 15:07 | NUR ---
PATIENT IN BED, MD AT BEDSIDE. ORDERS RECEIVED TO REMOVE MORA CATHETER, CONTINUE TO ADVANCE DIET AND REDUCE CONTINUOUS IV FLUID TO 50 ML/HR, AND PT/OT ORDERS. PT INTO ROOM WITH PATIENT. ASSISTED PATIENT UP INTO CHAIR. PATIENT TOLERATED WELL. PATIENT PROVIDED WITH CRACKERS PER HER REQUEST. PRN NAUSEA AND PAIN MEDICATION ADMINISTERED PER PATIENT REQUEST. CALL LIGHT AND PERSONAL BELONGINGS IN REACH OF PATIENT. PATIENT DENIES FURTHER CONCERNS AT THIS TIME. BED CHANGE COMPLETED, MORA REMOVED WNL.
--- NOTE | 2025-02-07 16:44 | NUR ---
GOT PT FRESH ICE FOR HER ICE PACKS AND FRESH ICE WATER TO DRINK. PT WAS MOVED TO CHAIR AND MORA REMOVED BY RN. THIS ASSISTANT GOLF PROFESSIONAL CLEANED UP ROOM - THREW AWAY GARBAGE AND TOOK OUT TRASH. PT REPORTED NEEDING NOTHING MORE AT THIS TIME.
--- NOTE | 2025-02-07 17:17 | NUR ---
PATIENT UP IN CHAIR. PATIENT REPORTS NAUSEA AFTER EATING DINNER. PATIENT REPORTS 9/10 PAIN, PRN PAIN MEDICATION ADMINISTERED PER PATIENT REQUEST. PATIENT REQUESTS TO RETURN TO BED. TRANSFERRED PATIENT FROM CHAIR TO BED. PATIENT TOLERATED WELL. PATIENT DENIES CONCERNS. CALL LIGHT IN REACH.
--- NOTE | 2025-02-07 18:14 | NUR ---
PT HAD A HALF A SANDWICH A COUPLE HOURS BEFORE DINNER, BUT IT MADE HER FEEL SICK TO HER STOMACH, SO SHE DID NOT EAT MUCH DINNER.
--- NOTE | 2025-02-07 18:16 | NUR ---
PT RETURNED TO BED FROM THE CHAIR. THIS OCCURRED ABOUT 1700. PT GIVEN WARM WASH CLOTH TO CLEAN FACE AND HANDS. PT DID NOT WANT A BED BATH, REPORTING "TOO MUCH PAIN." GARBAGE TAKEN OUT OF ROOM AND ROOM PICKED UP. PT HAS FRESH WATER WITHIN REACH AND THE CALL LIGHT NEXT TO HER HAND ON THE BED. PT REPORTS NEEDING NOTHING MORE AT THIS TIME.
--- NOTE | 2025-02-07 18:20 | NUR ---
PT'S O2 LEVELS WERE READING A LITTLE LOWER THAN EARLIER IN THE DAY, REPORTED TO RN. PT WAS IN AND OUT OF SLEEPING THROUGHOUT VITALS, SNORING ON AND OFF ALSO. PT HAD TV ON AND THE LIGHTS OFF. NO VISITORS IN THE ROOM. FRESH ICE WATER NEXT TO BED, AND CALL LIGHT NEXT TO PT ON BED.
--- NOTE | 2025-02-07 18:42 | NUR ---
SPOKE WITH MD GARCIA. REVIEWED PATIENT WAS "SAVING" FINAL DOSE OF OFIRMEV TO INFUSE BEFORE SHE WORKED WITH PHYSICAL THERAPY, HOWEVER THE ORDER WAS DC'D PRIOR TO HER WORKING WITH PT TODAY. MD VERBAL ORDER, ONE TIME DOSE OF OFIRMEV 1000 MG IV OVER [address] PATIENT IN BED, EYES CLOSED, CHEST RISE EVEN AND UNLABORED CALL LIGHT AND PERSONAL BELONGINGS IN REACH OF PATIENT.
[2025-02-07] MEDS ORDERED: ACETAMINOPHEN 1,000 MG/100 ML VIAL IV ONE (18:45)
--- NOTE | 2025-02-07 19:24 | NUR ---
REPORT RECEIVED FROM DAY SHIFT RN. PATIENT RESTING IN BED WITH EYES CLOSED. RESPIRATIONS EVEN AND UNLABORED. CALL LIGHT IN REACH.
--- NOTE | 2025-02-07 19:34 | NUR ---
RT MICHAEL IN ROOM TO EVALUATE pt. pt AWAKE, 86% ON RA. 1L OXYGEN BY NC APPLIED, SPO2 INCREASES TO 93%. PRIMARY RN YANELY NOTIFIED.
--- NOTE | 2025-02-07 20:12 | NUR ---
PATIENT REPORTING 8/10 ABD PAIN. PRN PAIN MEDICATION ADMINISTERED. PATIENT REPOSITIONED IN BED. ABD INCISION C/D/I. SCHEDULED IV ABX INFUSING PER ORDER. NEW BAG IV FLUID INFUSING PER ORDER. PATIENT DENIES FURTHER NEEDS AT THIS TIME. NO FURTHER NEEDS. CALL LIGHT IN REACH.
--- NOTE | 2025-02-07 23:08 | NUR ---
PATIENT RESTING IN BED WITH EYES CLOSED. RESPIRATIONS EVEN AND UNLABORED. CALL LIGHT IN REACH.
--- NOTE | 2025-02-07 23:44 | NUR ---
PATIENT RESTING IN BED WITH 8/10 ABD PAIN. PRN PAIN MEDICATION ADMINISTERED. PATIENT DENIES FURTHER NEEDS. CALL LIGHT IN REACH.
[2025-02-08] VITALS (7 sets, daily range): BP systolic 110–158; BP diastolic 73–88
--- NOTE | 2025-02-08 02:31 | NUR ---
PATIENT REPORTING 8/10 ABD PAIN. PRN PAIN MEDICATION ADMINISTERED. PATIENT UP TO BATHROOM USING 1P SBA TO VOID 500 mL OF YELLOW URINE. PATIENT BACK TO BED. PATIENT DARLING WELL. SCDs IN PLACE. ASSESSMENT COMPLETE. PRN NAUSEA MEDICATION ADMINISTERED PER PATIENT REQUEST. IV ABX INFUSING PER ORDER. PATIENT DENIES FURTHER NEEDS. CALL LIGHT IN REACH. 1L NC REMAINS IN PLACE.
[2025-02-08] MEDS ORDERED: ACETAMINOPHEN 1,000 MG/100 ML VIAL IV PRN (02:45)
--- NOTE | 2025-02-08 04:41 | NUR ---
PATIENT RESTING IN BED ON BACK WITH EYES CLOSED. RESPIRATIONS EVEN AND UNLABORED. CALL LIGHT IN REACH.
--- NOTE | 2025-02-08 05:53 | NUR ---
HYDRAULIC ROCKBREAKER OPERATOR OBTAINED VITALS AND I&O. PT STATES NO NEEDS AT THIS TIME. CALL LIGHT WITHIN REACH.
--- NOTE | 2025-02-08 07:25 | NUR ---
VERBAL REPORT RECIEVED BY KRAEN NY. PATIENT RESTING IN BED EYES CLOSED, BREATHING EVEN AND UNALBORED. CALL LIGHT IN REACH. NO REQUESTS AT THIS TIME.
--- NOTE | 2025-02-08 07:25 | NUR ---
VERBAL REPORT RECIVED BY KAREN NY. PATIENT RESTING AWAKE IN BED, DENIES ANY NEEDS AT THIS TIME. CALL LIGHT IN REACH.
--- NOTE | 2025-02-08 08:22 | NUR ---
IN ROOM WITH PATIENT COMPLAINING OF 8/10 ABD PAIN. PRN PAIN MEDICATION GIVEN PER PATIENT REQUEST (SEE EMAR). ICE PACK PROVIDED FOR PATIENT COMFORT. PATIENT EATING BREAKFAST IN BED AT THIS TIME. NO FURTHER NEEDS AT THIS TIME. CALL LIGHT IN REACH.
--- NOTE | 2025-02-08 09:23 | NUR ---
WHILE SLEEPING ON RA 83%. ALEJANDRA SCORE OF 6 AND LIKELY NEEDS A SLEEP STUDY.
--- NOTE | 2025-02-08 09:43 | NUR ---
IN ROOM WITH PATIENT, OCCUPATIONAL THERAPY WORKING WITH PATIENT AT THIS TIME. PATIENT DENIES ANY NEEDS AT THIS TIME.
[2025-02-08] MEDS ORDERED: NP THYROID15 MG PO (10:35)
--- NOTE | 2025-02-08 10:55 | NUR ---
PATIENT CALLED REPORTING THAT SHE WAS NAUSEATED. THIS RN IN ROOM TO ASSESS PATIENT AND PROVIDE PRN DOSE OF ZOFRAN. WHEN ENTERED ROOM, PATIENT WAS SITTING UP IN HER RECLINER. PATIENT STATES "I THINK I'M NAUSEATED FROM MY PAIN BECAUSE IT'S SO HIGH". PATIENT RATES HER PAIN A 9/10. PATIENT ABDOMINAL BINDER REMOVED TO ASSESS WOUND. WOUND INCISION IS WELL APPROXIMATED, NO DRAINAGE NOTED TO ABD WOUND, NO REDNESS OR SWELLING NOTED. PATIENT AVIS DRAIN SITE ASSESSED AND NOTED TO HAVE MODERATE AMOUNT OF SEROUSANGUINOUS DRAINAGE TO GAUZE. SUTURES ARE STILL INPLACE. AVIS DRAIN SITES CLEANSED WITH GAUZE AND SALINE. PATIENT TOLERATED WELL. NEW SLIT GAUZES APPLIED TO AVIS DRAIN SITES. FRESH BLANKET APPLIED OVER PATIENT'S ABDMONEN THEN ABDOMINAL BINDER APPLIED ONTOP OF BLANKET TO HELP WITH SPLINTING AND PRESSURE. PATIENT TRANSFERED TO BED VIA 1 PERSON ASSIST. PATIENT REPORTING STILL HAVING INCREASED PAIN "BUT I CAN TELL A DIFFERENCE WHEN LAYING DOWN, NOT SO MUCH PRESSURE". PATIENT IV FLUSHED WITH 10ML OF NS, DRESSING IS INTACT. PRN DOSE OF MORPHINE PROVIDED. IV FLUIDS ARE INFUSING PER ORDER. PATIENT IS ON 2L NS AND IS 97%, CPOX AT BEDSIDE. PATIENT RESTING IN BED WITH HOB ELEVATED, PATIENT STATES SHE IS COMFORTABLE. SCD'S APPLIED. PATIENT WITHOUT FURTHER NEEDS AT THIS TIME. CALL LIGHT AND PERSONAL BELONGINGS ARE WITHIN REACH. PATIENT ASSESSMENT COMPLETED BY THIS RN AND KAREN HOFFMAN.
--- NOTE | 2025-02-08 11:09 | NUR ---
MED REC COMPLETE
--- NOTE | 2025-02-08 11:10 | NUR ---
VISITED DURING SPIRITUAL CARE ROUNDS. PT APPEARED TO BE SLEEPING. DID NOT DISTURB. PROVIDED PRAYER.
--- NOTE | 2025-02-08 11:23 | NUR ---
PATIENT IN BED AT THIS TIME. ULTRASOUND SONOGRAPHER CHARTED VITALS AND I&O'S. ULTRASOUND SONOGRAPHER PROVIDED PATIENT WITH WASH CLOTH TO WASH FACE. CALL LIGHT WITHIN REACH, NO FURTHER NEEDS.
--- NOTE | 2025-02-08 11:52 | NUR ---
IMM REVIEWED WITH PATIENT. PT VERBALIZED UNDERSTANDING.
--- NOTE | 2025-02-08 12:07 | NUR ---
DR GARCIA UPDATED ON PATIENT'S STATUS AND INCREASE PAIN. DR GARCIA WITH VERBAL ORDER FOR MOTRIN 400MG PO Q8 PRN AND OMEPRAZOLE 20MG PO DAILY. MD STATES HE WILL GO SEE PATIENT. MD WITH NO FURTHER ORDERS AT THIS TIME.
[2025-02-08] MEDS ORDERED: IBUPROFEN 400 MG TAB PO PRN (12:15)
[2025-02-08] MEDS ORDERED: PANTOPRAZOLE SODIUM 40 MG TABEC PO SCH (12:30)
--- NOTE | 2025-02-08 12:35 | NUR ---
THIS RN CLARIFIED ORDER FOR PO PROTONIX AT THIS TIME. MD STATED TO CONTINUE WITH ADMINISTRATION AT THIS TIME. THIS RN NOTIFIED PRIMARY RN AT THIS TIME.
--- NOTE | 2025-02-08 12:43 | NUR ---
IN ROOM WITH PATIENT. PATIENT COMPLAINS OF 7/10 POST OP ABD PAIN. SCHEDULED PAIN MEDICATION GIVEN (SEE EMAR). PATIENT EDUCATED ON POC REGARDING NEW MEDICATIONS, PATIENT VERBALIZES UNDERSTANDING. PATIENT USES CLARINET. SANDWICH ORDERED PER PATIENT REQUEST. DENIES ANY FURTHER NEEDS AT THIS TIME. BELONGINGS AND CALL LIGHT IN REACH.
--- NOTE | 2025-02-08 13:12 | NUR ---
INTO SEE PATIENT. PATIENT LIVES WITH GRANDDAUGHTER. HER OTHER GRANDDAUGHTER IS IN TOWN TO HELP ALSO. PATIENT WILL GO HOME AT TIME OF DISCHARGE WHEN MEDICALLY CLEARED. WILL TAKE HER INFORMATION FOR [employer] TO RENT A FWW TEMPORAILY.
--- NOTE | 2025-02-08 13:50 | NUR ---
PATIENT IS IN BED AT THIS TIME, MOTOR WINDER CHARTED VITALS AND I&O'S, GOT PATIENT A ASHUTOSH AND ASSISTED IN GETTING IT READY FOR HER. CALL LIGHT WITH IN REACH AND NOTHING ELSE NEEDED AT THIS TIME.
--- NOTE | 2025-02-08 15:25 | NUR ---
PATIENT UP WITH OT AT THIS TIME. PATIENT DENIES ANY NEEDS FROM THIS RN.
--- NOTE | 2025-02-08 16:35 | NUR ---
PATIENT SITTING UP IN HER CHAIR AND REPORTS MINIMAL PAIN. PATIENT STATES "THAT MOTRIN REALLY HELPED. EVEN AFTER WORKING WITH THERAPY THIS TIME, I DIDN'T FEEL REALLY PAINFUL LIKE LAST TIME". FRESH ICE WATER PROVIDED. PATIENT DENIES FURTHER NEEDS AT THIS TIME. CALL LIGHT AND PERSONAL BELONGINGS ARE WITHIN REACH.
--- NOTE | 2025-02-08 17:43 | NUR ---
PATIENT MEDICATED PER EMAR. PATIENT TRANSFERED BACK TO BED VIA 1PERSON ASSIST BY KAREN HOFFMAN. PATIENT REPORTING 8/10 PAIN. PATIENT IV FLUSHED WITH 10ML OF NS, DRESSING IS INTACT. IV FLUIDS INFUSING PER EMAR. PATIENT WITHOUT FURTHER NEEDS AT THIS TIME. CALL LIGHT AND PERSONAL BELONGINGS ARE WITHIN REACH.
--- NOTE | 2025-02-08 18:26 | NUR ---
PATIENT IN BED AT THIS TIME. TREASURY MANAGEMENT SALES CONSULTANT CHARTED VITALS AND I&O'S. CALL LIGHT WITHIN REACH, NO FURTHER NEEDS.
--- NOTE | 2025-02-08 18:45 | NUR ---
PATIENT CALLED REPORTING NAUSEA AFTER PAIN MEDICATIONS GIVEN. PATIENT STATES "I DON'T THINK I CAN HANDLE THE ONE I TAKE WITH A PILL". KAREN SULLIVAN AND MAZIN RN IN ROOM PROVIDING PRN DOSE OF ZOFRAN. PATIENT WITHOUT FURTHER NEEDS FROM THIS RN AT THIS TIME. CALL LIGHT AND PERSONAL BELONGINGS ARE WITHIN REACH.
--- NOTE | 2025-02-08 19:30 | NUR ---
RECEIVED REPORT FROM KAREN SANTILLAN. PT RESTING IN BED ON LEFT SIDE, REPORTS DISCOMFORT AFTER RECENT EMESIS. DENIES NEEDS AT THIS TIME. CALL LIGHT WITHIN REACH.
[2025-02-08] MEDS ORDERED: TRIMETHOPRIM/SULFAMETHOXAZOLE 1 EA TAB PO SCH (21:00)
--- NOTE | 2025-02-08 21:02 | NUR ---
PT RESTING IN BED. REPORTS 10/10 ABD PAIN-SHARP. MEDICATED W/ PRN IBUPROFEN AND IV MORPHINE. ORIENTED X 3. LSC, USED CORONET X 10 W/ ENC. 1L O2 IN PLACE N/C. CPOX IN PLACE. HRR. ABD OBESE, TENDER TO PALPATION. BTA X 4. DENIES NAUSEA CURRENTLY. CRACKERS GIVEN W/ PO MEDS. LARGE TRANSVERSE ABD INC OPEN TO AIR, INC W/ GLUE. ABD BINDER IN PLACE. REPORTS FLATUS, NO BM. 2 AVIS DRAINS TO UPPER ABD, MINIMAL SEROSANG DRNG, STRIPPED AND EMPTIED. VOIDS WNL. RIGHT WRIST IV INFUSING NS, WNL. SBA TO BR. SCD'S TO BLE. HOB UP AT 30 DEGREES. CALL LIGHT WITHIN REACH.
--- NOTE | 2025-02-08 22:12 | NUR ---
PT AWAKE, SCD'S BEEPING. DECLINES ANY FURTHER NEEDS.
--- NOTE | 2025-02-08 22:56 | NUR ---
PT STILL AWAKE, PLYING ON PHONE. REPORTS PAIN IS BETTER, 4/10, AND IS COMFORTABLE ENOUGH TO BE ABLE TO SLEEP. DENIES ANY FURTHER NEEDS. CALL LIGHT WITHIN REACH.
[2025-02-09] VITALS (7 sets, daily range): BP systolic 146–167; BP diastolic 84–88
--- NOTE | 2025-02-09 00:02 | NUR ---
INFORMED BY MINING TEACHER, pt REPORTING NAUSEA. TOO SOON FOR PRN ZOFRAN PER EMAR. pt SITTING ON EDGE OF BED, PROVIDED NONPHARMACOLOGICAL INTERVENTIONS SUCH DEEP BREATHING, COOL RAG, THERAPEUTIC COMMUNICATION. STEPAN JONES AWARE AND IN ROOM WITH pt.
--- NOTE | 2025-02-09 00:13 | NUR ---
PT REPORTS N/V. SIPPING ON 7-UP. ASSISTED PT UP TO RECLINER W/ SBA. NEXT ANTI-EMETIC DUE AT 0045. CALL LIGHT WITHIN REACH.
--- NOTE | 2025-02-09 00:47 | NUR ---
CALL LIGHT ANSWERED, PATIENT DRY HEAVING MULTIPLE TIMES. REPORTS SEVERE NAUSEA. PRN NAUSEA MEDICATION GIVEN PER ORDER AND PER REQUEST. PATIETN SITTING UPRIGHT IN CHAIR, NO FURTHER NEEDS, CALL LIGHT IN REACH
--- NOTE | 2025-02-09 01:15 | NUR ---
PT SITTING UP EOB. REPORTS NAUSEA IS IMPROVING AFTER IV ZOFRAN. WANTS TO REMAIN UPRIGHT AT THIS TIME. CALL LIGHT WITHIN REACH.
--- NOTE | 2025-02-09 04:41 | NUR ---
SLEEPING SOUNDLY, APPEARS COMFORTABLE.
[2025-02-09 05:22] LABS: BASOPHILS 0.7 % (0.1-1.2); EOSINOPHILS 4.7 % (0.7-5.8); LYMPHOCYTES 20.3 % (19.3-51.7); MCH 30.7 PG (25.6-32.2); MCHC 33.0 g/dL (32.2-35.5); MCV 92.9 fL (79.4-94.8); MONOCYTES 9.1 % (4.7-12.5); NEUTROPHILS 64.8 % (34.0-71.1); RBC 3.23 M/uL (3.93-5.22)
[2025-02-09 05:34] LABS: GLOMERULAR FILTRATION RATE,EST 97.0 mL/min (>60); UREA NITROGEN 9.0 mg/dL (7-18)
--- NOTE | 2025-02-09 06:32 | NUR ---
PT RESTING COMFORTABLY ON RIGHT SIDE. DENIES NAUSEA OR PAIN AT THIS TIME. SCD'S OFF PER PT REQUEST. BTA. ABD BINDER IN PLACE. CALL LIGHT WITHIN REACH.
--- NOTE | 2025-02-09 07:05 | NUR ---
REPORT RECIEVED FROM KAREN KAUR. PATIENT RESTING IN BED ON HER RIGHT SIDE WITH HER EYES CLOSED. EVEN AND UNLABORED REPIRATIONS NOTED. CALL LIGHT AND PERSONAL BELONGINGS ARE WITHIN REACH. IV FLUIDS INFUSING PER ORDER. WHITE BOARD UPDATED.
--- NOTE | 2025-02-09 08:19 | NUR ---
MORNING MEDICATIONS ADMINISTERED PER THE EMAR. PATIENT REPORTED PAIN 4/10 IN THE ABDOMEN. PRN MOTRIN ADMINISTERED PER THE EMAR. PATIENT ASSISTED TO THE BATHROOM BY SBA. PATIENT VOIDED 750 ML OF YELLOW URINE. PATIENT THEN AMBULATED BACK TO THE CHAIR WITH HER BREAKFAST TRAY SET UP IN FRONT OF HER. PATIENT WITH NO COMPLAINTS OF NAUSEA AT THIS TIME. BED LINENS CHANGED. PATIENT STATED NO FURHTER NEEDS AT THIS TIME. CALL LIGHT AND PERSONAL BELONGINGS ARE WITHIN REACH.
--- NOTE | 2025-02-09 08:59 | NUR ---
PATIENT IS IN BED AT THIS TIME, MENTAL HYGIENE CONSULTANT CHARTED VITALS AND I&O'S, CALL LIGHT WITH IN REACH, GOT FRESH ICE WATER AND NOTHING ELSE NEEDED AT THIS TIME.
--- NOTE | 2025-02-09 09:05 | NUR ---
PATIENT ASSESSMENT COMPLETED. PATIENT IS ALERT AND ORIENTED X4. PATIENT IS RESTING IN BED AND REPORTS "MINIMAL PAIN, IT'S JOMAR JUST THERE, BUT NOT IN A BAD WAY". PATIENT DENIES ANY NAUSEA. PATIENT STATES "I'M READY TO GO HOME, I FEEL WELL ENOUGH TO GO". IV FLUIDS INFUSING PER ORDER. PATIENT IS WITHOUT FURTHER NEEDS AT THIS TIME. CALL LIGHT AND PERSONAL BELONGINGS ARE WITHIN REACH.
--- NOTE | 2025-02-09 10:06 | NUR ---
DR GARCIA CALLED DUE PATIENT'S POTASSIUM BEING 3.2 THIS MORNING AND POTENTIAL FOR PATIENT TO DISCHARGE TODAY. MD WITH TELEPHONE ORDER TO GIVE POTASSIUM 40 MEQ PO ONCE. MD WITH NO FURTHER ORDERS AT THIS TIME. CALL ENDED.
[2025-02-09] MEDS ORDERED: POTASSIUM CHLORIDE 10 MEQ TABCR PO ONE (10:15)
--- NOTE | 2025-02-09 10:36 | NUR ---
PATIENT MEDICATED PER EMAR. PATIENT RESTING IN BED WITH HER EYES CLOSED WHEN THIS RN ENTERED ROOM. PATIENT EASILY AROUSABLE. IV FLUIDS INFUSING PER ORDER. PATIENT WITHOUT FURTHER NEEDS FROM THIS RN AT THIS TIME. CALL LIGHT AND PERSONAL BELONGINGS ARE WITHIN REACH.
--- NOTE | 2025-02-09 11:09 | NUR ---
INTO SEE PATIENT. PATIENT IS IN HOPES TO POTENTIALLY D/C TODAY. GRANDDAUGHTERS AT HOME TO HELP TAKE CARE OF HER. GAVE HER ANOTHER [employer] FORM TO RENT A WALKER. WILL SETUP WITH HOME HEALTH.
--- NOTE | 2025-02-09 11:32 | NUR ---
VISITED DURING SPIRITUAL CARE ROUNDS. PT APPEARED TO BE SLEEPING. DID NOT DISTURB. PROVIDED PRAYER.
--- NOTE | 2025-02-09 12:07 | NUR ---
PATIENT TRAY SET UP NEXT TO PATIENT. PATIENT DENIES PAIN AT THIS TIME. PATIENT REPORTS "IT'S OKAY THERE ON THE SIDE, I'LL GET UP TO THE EDGE OF THE BED IN A MINUTE AND EAT". PATIENT STATES SHE WILL CALL IF SHE NEEDS ASSISTANCE. FRESH ICE WATER PROVIDED. PATIENT WITHOUT FURTHER NEEDS AT THIS TIME. CALL LIGHT AND PERSONAL BELONGINGS ARE WITHIN REACH.
--- NOTE | 2025-02-09 12:16 | PATH ---
[facility] [address], [place] [address] Signed SPECIMEN(S): A HERNIA SAC SPECIMEN(S): B OMENTUM SPECIMEN SOURCE: A. HERNIA SAC B. OMENTUM CLINICAL HISTORY: Abdominal mesh removal. Repair ventral hernia. FINAL PATHOLOGIC DIAGNOSIS: A. Tissue from ventral hernia, herniorrhaphy: - Benign fibroconnective tissue with fibrosis, chronic inflammation, and fat necrosis. - No abscess, granuloma, or malignancy identified. B. Omentum: - Benign adipose tissue. - No significant inflammation detected. - No malignancy identified. [facility] MICROSCOPIC EXAMINATION: Histologic sections of all submitted blocks are examined by light microscopy. These findings, together with the gross examination, support the pathologic diagnosis. GROSS DESCRIPTION: A. The specimen, labeled and designated "Farlow, hernia sac," is received in formalin and consists of irregular shaped fibromembranous tissue fragment that aggregate measure 7.0 x 6.8 x 1.5 cm. Serosal surface is violaceous, focally congested. No abnormalities are grossly identified. Electronics Research Engineer sections are submitted in (A1). B. The specimen, labeled and designated "Farlow, omentum," is received in formalin and consists of yellow-palmer, soft, lobulated fibroadipose tissue fragment that measure 6.5 x 4.2 x 0.7 cm. Specimen is inked. Sectioning through the specimen to reveal regular adipose tissue. No abnormalities are grossly identified. Electronics Research Engineer sections are submitted in (B1). JS (under the direct supervision of a pathologist) The Gross Description was prepared using a voice recognition system. The report was reviewed for accuracy; however, sound-alike word errors, addition and/or PATIENT NAME: ASHLEY MCGARRY PATHOLOGY DATE OF : 53 REPORT #: [id number] PHYSICIAN: NELSON REMY PCP: MAYRA FLORES PAC REPORT IS CONFIDENTIAL AND NOT TO BE RELEASED WITHOUT AUTHORIZATION [facility] [address], [place] [address] Signed deletions may occur. If there is any question about this report, please contact Client Services. ADDITIONAL NOTES: Immunohistochemical and/or in situ hybridization studies if performed in this case included appropriate positive controls that reacted as expected. This test was developed and its performance characteristics determined by [facility]. It has not been cleared or approved by the U.S. Food and Drug Administration. The FDA has determined that such clearance or approval is not necessary. This test is used for clinical purposes. It should not be regarded as investigational or for research. [facility] is certified under the Clinical Laboratory Improvement Amendments of 1988 (CLIA) as qualified to perform high complexity clinical laboratory testing. PERFORMING LABORATORY: Technical component was performed by [facility], [address] [place] [id number] (CLIA# [id number]). Professional interpretation was performed by [facility], [address] [place] [id number] (CLIA#: [id number]). Diagnostician: Carlos Hernández MD Pathologist Electronically Signed 02/09/2025 Copies: ~ PATIENT NAME: ASHLEY MCGARRY PATHOLOGY DATE OF : 53 REPORT #: [id number] PHYSICIAN: NELSON PATHOLOGY PCP: MAYRA FLORES PAC REPORT IS CONFIDENTIAL AND NOT TO BE RELEASED WITHOUT AUTHORIZATION
--- NOTE | 2025-02-09 13:01 | NUR ---
PATIENT IS IN BED AT THIS TIME, COMPRESSOR MECHANIC CHARTED VITALS AND I&O'S, CALL LIGHT WITH IN REACH AND NOTHING ELSE NEEDED AT THIS TIME.
--- NOTE | 2025-02-09 13:02 | NUR ---
PATIENT AVIS DRAINS EMPTIED AND CHARTED. DRAINS NOTED TO HAVE SEROUSANGUINOUS DRAINAGE. PATIENT DENIES PAIN AT THIS TIME AND IS WITHOUT FURTHER NEEDS FROM THIS RN. AD REICH IN ROOM ASSISTING PATIENT. CALL LIGHT AND PERSONAL BELONGINGS ARE WITHIN REACH.
--- NOTE | 2025-02-09 15:35 | NUR ---
PATIENT RESTING IN BED WITH HER EYES CLOSED. EVEN AND UNLABORED RESPIRATIONS NOTED. CALL LIGHT AND PERSONAL BELONGINGS ARE WITHIN REACH.
--- NOTE | 2025-02-09 17:35 | NUR ---
DR GARCIA AT BEDSIDE
[2025-02-09] MEDS ORDERED: SULFAMETHOXAZO1 EAC1 PO (17:45)
[2025-02-09] MEDS ORDERED: IBUPROFEN400 MG PO (17:46)
--- NOTE | 2025-02-09 18:18 | NUR ---
MD WITH VERBAL ORDER TO GIVE PATIENT A FLU SHOT BEFORE DISCHARGE
[2025-02-09] MEDS ORDERED: FLU (Fluad) 2025-26 (65UP)/MF59C/PF 45 MCG/0.5 ML IM SCH (18:30)
== END 2025-02-09 19:04 | disposition home or self-care (01) | DRG 355 ==
LOC: MS 16:32
PROVIDERS: ADMIT Surgery; ATTEND Surgery
PROC: 0WUF0JZ Supplement Abdominal Wall with Synthetic Substitute, Open Approach (ICD-10-PCS; principal; 2025-02-05 18:00)
DX: K43.2 Incisional hernia without obstruction or gangrene (principal); I10 Essential (primary) hypertension; K21.9 Gastro-esophageal reflux disease without esophagitis; F32.A Depression, unspecified; Z82.49 Family history of ischemic heart disease and other diseases of the circulatory system; Z79.890 Hormone replacement therapy; Z79.899 Other long term (current) drug therapy; Z91.041 Radiographic dye allergy status
CPT/HCPCS: 00800; 36415; 71045; 80048; 80053; 85025; 88302; 88305; 88307; 90653; 94667; 94668; 94762; 94799; 97161; 97166; 97530; 97535; A9270; J0131; J0295; J1100; J1171; J1644; J1790; J1885; J2003; J2250; J2270; J2405; J2704; J2795; J3010; J3475; J3490; J7030; J7121